=== PATIENT | male | born 1960 | race Caucasian/White ===

== ENCOUNTER 2021-05-20 10:29 | Emergency (ER) | payer BC ==
[~2021-05-20] VITALS: Ht 170.2 cm; Wt 68.0 kg
[2021-05-20] MEDS ORDERED: [UNRECOGNIZED DRUG - OTHER] (10:55)
[2021-05-20] MEDS ORDERED: SYNTHROID (10:55)
[2021-05-20] MEDS ORDERED: LEXAPRO (10:55)
--- NOTE | 2021-05-20 11:00 | NUR ---
60 yrs male wakling in from home c/o lt lower abdominale and lt flank pain sterted this morning goging worse last 20min come and goses seen by DR. Stover inserted ango catheter fr #18 on lt ac blood drow and sent to lab ua sent
[2021-05-20] MEDS ORDERED: KETOROLAC TROMETHAMINE 15 MG INJ IVP ONE (11:15)
[2021-05-20] MEDS ORDERED: KETOROLAC TROMETHAMINE 15 MG INJ ONE (11:31)
[2021-05-20 11:32] LABS: HEMATOCRIT 45.4 % (36.7-47.1); MEAN CORPUSCULAR HEMOGLOBIN 32.2 uug (23.8-33.4); MEAN CORPUSCULAR VOLUME 93.2 fL (73.0-96.2); PLATELET COUNT (AUTO) 274 K/uL (152-348)
[2021-05-20 11:37] LABS: CREATININE 1.4 mg/dL (0.6-1.3); POTASSIUM 4.2 mmol/L (3.5-5.1)
[2021-05-20 11:42] LABS: BILIRUBIN,DIRECT 0.1 mg/dL (0.0-0.2); BILIRUBIN,TOTAL 0.6 mg/dL (0.2-1.0); TOTAL PROTEIN, SERUM 7.1 g/dL (6.4-8.2)
[2021-05-20] MEDS ORDERED: HYDROMORPHONE 1 MG/1 ML DISP.SYRIN IV ONE (11:45)
[2021-05-20] MEDS ORDERED: HYDROMORPHONE 1 MG/1 ML DISP.SYRIN ONE (11:47)
[2021-05-20 11:50] LABS: *BILIRUBIN,URIN NEGATIVE (NEGATIVE); *CLARITY,URINE CLEAR (CLEAR); *COLOR,URINE YELLOW (YELLOW); *KETONES,URINE NEGATIVE (NEGATIVE); *UROBILINOGEN,URINE 0.2 E.U./dl (NORMAL); LEUKOCYTE ESTERASE ,URINE NEGATIVE (NEGATIVE); NITRITE, URINE NEGATIVE (NEGATIVE); PH,URINE 5.5 (5.0-8.0); UGLUCOSE NEGATIVE (NEGATIVE)
--- NOTE | 2021-05-20 11:50 | NUR ---
to ct scan of abdomin without contrast
[2021-05-20] MEDS ORDERED: IV NORMAL SALINE 1000 ML BAG IV ONE (12:00)
[2021-05-20 12:07] LABS: *BLOOD, URINE TRACE (NEGATIVE)
--- NOTE | 2021-05-20 12:21 | NUR ---
ivf infused and patent no redness or swallen on site
[2021-05-20] MEDS ORDERED: GABAPENTIN 300 MG CAPSULE PO ONE (13:00)
[2021-05-20] MEDS ORDERED: NAPROXEN 500 MG TABLET PO ONE (13:00)
[2021-05-20] MEDS ORDERED: GABA300C PO (13:12)
[2021-05-20] MEDS ORDERED: HYDR-3980 PO (13:12)
[2021-05-20] MEDS ORDERED: NAPR-1164 PO (13:12)
[2021-05-20] MEDS ORDERED: NAPROXEN 500 MG TABLET ONE (13:18)
[2021-05-20] MEDS ORDERED: GABAPENTIN 300 MG CAPSULE ONE (13:19)
--- NOTE | 2021-05-20 13:20 | NUR ---
amblate to br voding no diffeculy DR. RAND AT BED SIDE SPOOK WITH pt about plan of care D/C instraction given to pt fully and verblized understood d/c home stable vs and condition
[2021-05-20 13:30] VITALS: BP 127/98
[2021-05-20 14:07] LABS: RBC,URINE NONE SEEN /HPF (0-3); SQUAMOUS EPITHELIAL CELL,UR NONE SEEN /HPF (NONE SEEN); WBC,URINE NONE SEEN /HPF (0-3)
[2021-05-20 14:08] LABS: BACTERIA,URINE NONE SEEN /HPF (NONE SEEN)
== END 2021-05-20 13:35 | disposition home or self-care (01) ==
LOC: ER 10:51
DX: R10.32 Left lower quadrant pain (principal); M54.9 Dorsalgia, unspecified; E78.5 Hyperlipidemia, unspecified; E03.9 Hypothyroidism, unspecified; Z90.79 Acquired absence of other genital organ(s); Z88.6 Allergy status to analgesic agent; Z79.899 Other long term (current) drug therapy; Z79.890 Hormone replacement therapy
CPT/HCPCS: 36415; 71045; 74176; 80048; 80076; 81001; 83690; 84484; 85025; 85730; 96374; 96375; 99285; J1170; J1885; 70030-TC; A4663; J7030